=== PATIENT | female | born 2005 | race Caucasian/White ===

== ENCOUNTER 2024-10-08 23:20 | Emergency (ER) | payer OTHER, SELFPAY ==
[2024-10-08 23:29] VITALS: BP 121/85
[2024-10-08 23:56] LABS: % Basophils 0.8 % (0-2); % Eosinophils 2.8 % (0-6); % Immature Granulocytes 0.2 % (0-0.5); % Lymphocytes 36.9 % (20.5-51.1); % Monocytes 6.4 % (1.7-9.3); % Neutrophils 52.9 % (42.2-75.2); Absolute Basophils 0.1 10^3/uL (0-0.2); Absolute Eosinophils 0.3 10^3/uL (0-0.7); Absolute Lymphocytes 3.3 10^3/uL (1.2-3.4); Absolute Monocytes 0.6 10^3/uL (0.1-0.6); Absolute Neutrophils 4.7 10^3/uL (1.4-6.5); Hematocrit 38.6 % (37.0-47.0); Hemoglobin 12.9 g/dL (12.0-16.0); Mean Corp Hgb Conc. 33.4 g/dL (33.0-37.0); Mean Corpuscular Hgb 28.3 pg (27.0-31.0); Mean Corpuscular Volume 84.6 fL (81.0-99.0); Mean Platelet Volume 9.6 fL (7.4-10.4); Nucleated Red Blood Cells % 0 %; Platelet Count 360 10^3/uL (130-400); Red Blood Cell Count 4.56 10^6/uL (4.20-5.40); Red Cell Dist. Width 12.9 % (11.5-14.5)
[2024-10-09 00:15] LABS: ALT (SGPT) 38 U/L (0-35); AST (SGOT) 28 U/L (14-36); Albumin 4.2 g/dl (3.5-5.0); Alkaline Phosphatase 74 U/L (38-126); Blood Urea Nitrogen 5 mg/dl (7-17); Calcium 10.1 mg/dl (8.4-10.2); Carbon Dioxide 19 mmol/L (22-30); Chloride 107 mmol/L (98-107); Glucose 105 mg/dl (70-99); Potassium 3.9 mmol/L (3.5-5.1); Sodium 137 mmol/L (135-145); Total Bilirubin 0.6 mg/dl (0.2-1.3); Total Protein 7.2 g/dl (6.3-8.2); eGFR > 60.00
[2024-10-09 00:28] LABS: Troponin I < 0.012 ng/ml
[2024-10-09 02:49] VITALS: BP 116/69; BMI 35.8
[2024-10-09] MEDS: NSS 1000 IV (03:38)
[2024-10-09] MEDS: ZOFRAN 4 MG IV (03:43)
[2024-10-09 03:56] LABS: HCG, Serum Qualitative Screen Negative
[2024-10-09 04:19] LABS: D-Dimer < 0.27 ug/mlFEU (0.00-0.50)
--- NOTE | 2024-10-09 04:46 | ED.GENMED ---
History of Present Illness
General
Chief Complaint: Breathing Problem
Source: patient and family
Exam Limitations: none
Time Seen by Provider: 10/09/24 03:15
Nursing documentation reviewed up to this point in time: agreed with
History of Present Illness
History of Present Illness:
Pleasant 19-year-old female presents to the emergency department with nausea and vomiting. She states that she is home from school at [employer]. She states that for the last week she has been having nausea and vomiting and soft stools. She was seen in
the emergency department at [facility] and diagnosed with a panic attack. Patient came home and came here for evaluation. She is on Wegovy but does not feel that that is contributing to her symptoms. Patient last vomited approximately 20 hours prior to
arrival. She states that it was nonbilious and nonbloody. Denies abdominal pain. Denies fever or chills.
Review of Systems
Review of Systems
Allergies reviewed?: Yes
Other source history: family
All Other Systems: Not applicable
Constitutional: Reports no symptoms
EENT: Reports no symptoms
Respiratory: Reports no symptoms
Cardiac: Reports no symptoms
ABD/GI: Reports nausea and vomiting; Denies constipated, bloody stools or black stools
: Reports no symptoms
Musculoskeletal: Reports no symptoms
Skin: Reports no symptoms
Neurological: Reports no symptoms
Endocrine: Reports no symptoms
Hematologic/Lymphatic: Reports no symptoms
Psychiatric: Reports no symptoms
Phy Exam
General Physical Exam
General Presentation: well appearing and no apparent distress
General Skin: warm and dry
General Habitus: normal
General Mental: alert
General Hydration: appears well hydrated
ENT Exam
ENT Exam: EOMI, pharynx normal, neck supple and normocephalic
Eye Exam
Eye Exam: PERRL, cornea clear and conjunctiva normal
Cardiovascular Exam
Cardiovascular Exam: regular rate/rhythm, no edema, no murmur and normal peripheral pulses
Pulmonary Exam
Pulmonary Exam: lungs clear, no respiratory distress, no rales, no crackles, no rhonchi, no stridor, no wheezing and no cough
Gastrointestinal Exam
Gastrointestinal Exam: normal bowel sounds, non tender, soft, no organomegaly, no pulsatile mass and non distended
Neurological Exam
Neurological Exam: alert, oriented x3, no motor deficits and speech normal
Musculoskeletal Exam
Musculoskeletal Exam: full ROM and no edema
Skin Exam
Skin Exam: normal color, warm/dry, no rash, no petechia and other (Multiple piercings including a lip ring)
Psychiatric Exam
Psychiatric Exam: normal mood/affect
Course
Orders/Labs/Results
Orders:
Orders
10/08/24 23:36
EKG [Electrocardiogram (*1)] Urgent
Reason for Study: Chest Pain
EKG- Treatment ONCE
10/08/24 23:46
Complete Blood Count/With Diff Urgent
Comprehensive Metabolic Panel Urgent
Troponin I Urgent
10/09/24 03:25
0.9% Sodium Chloride 1000 ml [Nss] 1,000 ml IV BOLUS
Test Result ONCE
10/09/24 03:28
D-Dimer Urgent
HCG, Serum Qualitative Screen Urgent
10/09/24 03:41
Ondansetron Orally Disint [Zofran Odt (Orally Disintegrating)] 4 mg PO NOW STA
10/09/24 03:42
Ondansetron Injectable [Zofran] 4 mg .ROUTE .STK-MED ONE
10/09/24 03:43
Ondansetron Injectable [Zofran] 4 mg IV NOW STA
Abnormal Lab Results
10/08/24
23:46
Carbon Dioxide 19 L mmol/L
(22-30)
BUN 5 L mg/dl
(7-17)
Glucose 105 H mg/dl
(70-99)
ALT 38 H U/L
(0-35)
10/08/24 23:46
10/08/24 23:46
Vital Signs
Initial and Last Documented VS:
Initial Vital Signs
Temp Pulse Resp BP Pulse Ox
98.6 F 79 20 121/85 100
10/08/24 23:29 10/08/24 23:29 10/08/24 23:29 10/08/24 23:29 10/08/24 23:29
Last Documented Vital Signs
Temp Pulse Resp BP Pulse Ox
98.6 F 94 19 121/75 99
10/08/24 23:29 10/09/24 04:56 10/09/24 04:56 10/09/24 04:56 10/09/24 04:56
*Critical Care Note
Total Time (30-74mins, 75-104mins- exclusive of procedures): Not Applicable
ED Attending Note
-
Portions of this chart may have been created with voice recognition software.� Occasional wrong word or��sound alike� substitutions may have occurred due to the inherent limitations of voice recognition software.
Discharge Plan
Departure
Patient Disposition: Home (Routine Discharge)
Date of Disposition: 10/09/24
Time of Disposition: 04:47
Patient with high blood pressure during this ER visit?: No
Condition: Good
Discharge Problem:
Nausea & vomiting
Instructions: Nausea and vomiting in adults
Prescriptions:
New
ondansetron 4 mg tablet,disintegrating
4 mg PO Q8H 5 Days Qty: 15 0RF
Referrals:
[facility] [Outside]
[facility] [Outside]
Activity Restrictions/Additional Instructions:
Your prescriptions were sent electronically to the pharmacy that you specified.
It was a pleasure meeting you and taking part in your care. We hope for your continued healing and wellness.
Please read discharge instructions in their entirety. However, they are for general education and may not describe your exact diagnosis at discharge. Information on your ER visit and medical conditions were discussed with you along with appropriate
follow up information...
If indicated, please take your medications as instructed and indicated on discharge paperwork.
Please schedule a follow up appointment as directed. Call to schedule an appointment
Please return to the emergency department with ANY change in, persisting, or worsening of symptoms. If any of your symptoms do not improve, or persist, or become more severe within 6-12 hours, please return to the emergency department for further
care.
Please return to the emergency department if you develop a headache, neck pain/stiffness, fever greater than 100.4F, chest pain, shortness of breath, persistent nausea, vomiting, slurred speech, difficulty walking, numbness/tingling, weakness, signs
of infection or any other symptoms that are worrisome to you.
If you have any questions or concerns please do not hesitate to call the Hospital at or E-mail me directly at [email or web address]
Interventions
Interventions:
*Risk Screen - Suicide Last Done: 10/08/24 23:29
*General Assessment Last Done: 10/09/24 02:49
*Neglect/Abuse Screening Last Done: 10/09/24 02:49
*ED COVID-19 Vaccine History Last Done: 10/09/24 02:49
*Nursing Disposition Last Done: 10/09/24 04:56
ED- Cardiac Assessment Last Done: 10/09/24 02:49
ED- Pulmonary Assessment Last Done: 10/09/24 02:49
Discharge Date and Time
Discharge Date/Time: 10/09/24 05:04
Print Language: SENEGALESE
[2024-10-09 04:56] VITALS: BP 121/75
== END 2024-10-09 05:04 | disposition home or self-care (01) ==
LOC: EMR 23:20
PROVIDERS: EMERGENCY PHYSICIAN Student in an Organized Health Care Education/Training Program
DX: R11.2 Nausea with vomiting, unspecified (principal); Z79.899 Other long term (current) drug therapy
CPT/HCPCS: 96374; 96361; 99284; 80053; 84484; 84703; 85025; 85379; 93005

== ENCOUNTER 2024-10-09 21:30 | Emergency (ER) | payer OTHER, SELFPAY ==
[2024-10-09 21:34] VITALS: BP 141/92
[2024-10-09 22:01] LABS: % Basophils 0.8 % (0-2); % Immature Granulocytes 0.1 % (0-0.5); % Lymphocytes 31.6 % (20.5-51.1); % Monocytes 7.2 % (1.7-9.3); % Neutrophils 52.3 % (42.2-75.2); Absolute Basophils 0.1 10^3/uL (0-0.2); Absolute Eosinophils 0.6 10^3/uL (0-0.7); Absolute Lymphocytes 2.3 10^3/uL (1.2-3.4); Absolute Monocytes 0.5 10^3/uL (0.1-0.6); Absolute Neutrophils 3.7 10^3/uL (1.4-6.5); Hematocrit 39.6 % (37.0-47.0); Hemoglobin 13.2 g/dL (12.0-16.0); Mean Corp Hgb Conc. 33.3 g/dL (33.0-37.0); Mean Corpuscular Hgb 27.9 pg (27.0-31.0); Mean Corpuscular Volume 83.7 fL (81.0-99.0); Mean Platelet Volume 9.5 fL (7.4-10.4); Nucleated Red Blood Cells % 0 %; Platelet Count 336 10^3/uL (130-400); Red Blood Cell Count 4.73 10^6/uL (4.20-5.40); White Blood Cell Count 7.1 10^3/uL (4.8-10.8)
[2024-10-09 22:15] LABS: ALT (SGPT) 47 U/L (0-35); AST (SGOT) 30 U/L (14-36); Albumin 4.3 g/dl (3.5-5.0); Alkaline Phosphatase 75 U/L (38-126); Blood Urea Nitrogen 4 mg/dl (7-17); Calcium 9.8 mg/dl (8.4-10.2); Carbon Dioxide 18 mmol/L (22-30); Chloride 109 mmol/L (98-107); Glucose 99 mg/dl (70-99); Lipase 84 U/L (23-300); Sodium 140 mmol/L (135-145); Total Bilirubin 0.6 mg/dl (0.2-1.3); Total Protein 7.3 g/dl (6.3-8.2); eGFR > 60.00
[2024-10-10 00:38] VITALS: BP 130/75
[2024-10-10 00:41] VITALS: BMI 34.7
[2024-10-10 01:00] VITALS: BP 120/64
[2024-10-10 01:18] LABS: Urine Albumin Negative (Neg - Trace); Urine Bilirubin Negative (Negative); Urine Character Clear (Clear); Urine Color Yellow; Urine Glucose Negative (Negative); Urine Ketone 3+ (Negative); Urine Leukocyte Negative (Negative); Urine Nitrite Negative (Negative); Urine Occult Blood 2+ (Negative); Urine Specific Gravity 1.015 (<1.030); Urine Urobilinogen Negative (Neg - 1+)
--- NOTE | 2024-10-10 01:54 | ED.GENMED ---
History of Present Illness
General
Chief Complaint: Abdominal Pain
Source: patient, family (Mother who is at bedside) and previous hospital records (ED visit from yesterday for similar complaint.)
Exam Limitations: none
Time Seen by Provider: 10/10/24 01:19
Nursing documentation reviewed up to this point in time: agreed with
History of Present Illness
History of Present Illness:
This is a 19-year-old overweight female who has history of anxiety, insomnia, obesity and was started on Wegovy early August. Recently completed a 4-week course of 0.5 mg weekly.
1 week ago she developed nausea, vomiting, generalized upper abdominal pain, chest pain, intermittent chills without associated fever. She denies diarrhea nor constipation, states she has been passing soft to firm stools. At 1 point she wiped and
noted scant blood on the toilet tissue but denies blood streaked about the stools nor blood in the toilet. Evaluated in [facility] where she is a student at [employer]. She states workup was unremarkable, was diagnosed with panic
attack and discharged to home. Symptoms have persisted throughout the week and she presented yesterday to this ED with similar complaints. Received IV fluids, and IV dose of Zofran. Lincoln improved. EKG, laboratory studies were unremarkable
including negative D-dimer, normal troponin. Discharged home with prescription for Zofran.
She returns with similar symptoms and admits that upper abdominal pain is worse with meals, somewhat worse with lying supine radiates to her chest and accompanied with intermittent shivering, intermittent shortness of breath but no cough, no fever.
She has had no further nausea nor vomiting.
Last menstrual period 3 weeks ago, normal and on time.
She states she did skip her most recent dose of Wegovy which was due on October 08.
Past History
Past History
ED Past Medical History: Psychiatric and Other (Overweight)
ED Past Surgical History: None
Social History
Tobacco: Non-smoker
Alcohol: None
Drug: None
Personal: Single
Living: with family
Employment: Student
Family History
Family History: Other (Noncontributory)
Phy Exam
Physical Exam
Physical Exam:
GENERAL: 19-year-old female appears her stated age, awake and alert, pleasant, appears in no acute distress. Mother is accompanying.
EYE: anicteric
NECK: Supple, nontender, no meningismus, no significant adenopathy.
ENT: oral mucosa is moist. No rhinorrhea.
CARDIAC: Regular rate and rhythm. no murmur.
LUNGS: Clear breath sounds bilaterally, no acute respiratory distress, no wheezes/rales/rhonchi
ABDOMEN: Soft, nondistended, mild tenderness epigastric region with deep palpation only, no r/g, no cvat. No palpable masses. Normoactive BS.
NEUROLOGICAL: Alert and oriented x3, no focal neuro deficits. Gait is fernandez and steady.
SKIN: Warm and dry, normal color, skin intact. No rash.
MUSCULOSKELETAL: No C/C/E. peripheral pulses are full and equal b/l. No palpable tenderness.
PSYCH: Normal and appropriate interaction.
Course
Orders/Labs/Results
Orders:
Orders
10/09/24 21:47
Complete Blood Count/With Diff Urgent
Comprehensive Metabolic Panel Urgent
Lipase Urgent
TSH Reflex To Free T4 Urgent
Comment: ADD ON
10/10/24 00:55
Urinalysis Reflex To Culture Urgent
Date Specimen was Collected: 10/10/24
Time Specimen was Collected: 00:40
Urine Microscopic Reflex Cult Urgent
10/10/24 01:24
Add On- LAB Urgent
Tests Added?: TSH w reflex to free T-4
10/10/24 01:52
US Abdomen Complete/Upper Urgent
Comment:
Reason For Exam: 1 week upper abd pain, N/V
10/10/24 02:01
Pantoprazole [Protonix IV] 40 mg IV NOW STA
10/10/24 02:43
D-Dimer Urgent
Abnormal Lab Results
10/09/24 10/10/24
21:47 00:55
Eosinophils % 8.0 H %
(0-6)
Chloride 109 H mmol/L
(98-107)
Carbon Dioxide 18 L mmol/L
(22-30)
BUN 4 L mg/dl
(7-17)
ALT 47 H U/L
(0-35)
Urine Ketones 3+ A
(Negative)
Ur Occult Blood Reflex 2+ A
(Negative)
Urine RBC 7-10 A /HPF
(0-2)
Urine Bacteria (Reflex) Few A
(Negative)
10/09/24 21:47
10/09/24 21:47
Vital Signs
Initial and Last Documented VS:
Initial Vital Signs
Temp Pulse Resp BP Pulse Ox
98 F 98 18 141/92 98
10/09/24 21:34 10/09/24 21:34 10/09/24 21:34 10/09/24 21:34 10/09/24 21:34
Last Documented Vital Signs
Temp Pulse Resp BP Pulse Ox
98 F 86 15 125/67 98
10/09/24 21:34 10/10/24 03:15 10/10/24 03:15 10/10/24 03:00 10/09/24 21:34
MDM/Problems Addressed
Differential Diagnosis Includes:
Concern for GERD, gastritis, biliary colic, thyroid disorder, constipation. Concern for adverse reaction to GLP-1 agonist.
Symptoms have been ongoing for a week. Unremarkable EKG yesterday as well as negative troponin. ACS, cardiac abnormality are unlikely.
Symptoms are worse with eating, worse at nighttime more suspicious for GERD versus biliary colic.
Symptoms are not all that consistent with PE however patient does have risk factors for thromboembolism; maintained on control pills and smokes.
Will check abdominal ultrasound.
Will check TSH.
Will check D-dimer.
Will give an IV dose of Protonix for potential gastritis/GERD.
Chronic conditions affecting care: Psychiatric illness
*Radiology
Radiology exam reviewed: radiology read reviewed (Abdominal ultrasound is unremarkable)
*Pulse Oximetry
Patient hypoxic: no
*Cold Press Operator Interpretation
Rate: normal
Interpretation: normal
Rhythm: sinus
*Critical Care Note
Total Time (30-74mins, 75-104mins- exclusive of procedures): Not Applicable
Update Note
Update Note:
03:40
Patient continues to appear comfortable. Resting comfortably. She has had no nausea or vomiting. Remains afebrile.
Abdomen is soft without appreciable tenderness.
Abdominal ultrasound is unremarkable.
TSH is normal.
D-dimer within normal limits as well.
Will initiate a short course of Protonix for potential gastritis, GERD and recommend she continue to hold her Wegovy at least for now, for at least another week as this could certainly be aggravating/causing the symptoms.
Recommend bland diet.
Prompt follow-up with PCP for recheck.
ED Attending Note
-
Portions of this chart may have been created with voice recognition software.� Occasional wrong word or��sound alike� substitutions may have occurred due to the inherent limitations of voice recognition software.
Discharge Plan
Departure
Patient Disposition: Home (Routine Discharge)
Date of Disposition: 10/10/24
Time of Disposition: 03:39
Patient with high blood pressure during this ER visit?: No
Condition: Good
Discharge Problem:
acute gastritis with GERD
Instructions: Acid Reflux and GERD in Adults (DC), Gastritis (DC)
Prescriptions:
New
pantoprazole [Protonix] 40 mg tablet,delayed release (DR/EC)
40 mg PO DAILY Qty: 30 0RF
No Action
ondansetron 4 mg tablet,disintegrating
4 mg PO Q8H 5 Days Qty: 15 0RF
Referrals:
Paulette Flynn MD [Family Provider] - Call in 1-3 days for appt
Interventions
Interventions:
*Risk Screen - Suicide Last Done: 10/09/24 21:34
*General Assessment Last Done: 10/09/24 21:34
*Neglect/Abuse Screening Last Done: 10/09/24 21:34
ED- Fall Risk Assessment Last Done: 10/10/24 00:42
*Nursing Disposition Last Done: 10/10/24 03:48
HX-Qisluo-Qmtzyveabg Assessment Last Done: 10/10/24 00:42
Discharge Date and Time
Discharge Date/Time: 10/10/24 03:48
Print Language: IRISH
[2024-10-10 02:00] VITALS: BP 128/68
[2024-10-10 02:10] LABS: Urine Mucus Few; Urine Squamous Cell 21-25 /LPF (Few)
[2024-10-10 02:11] LABS: Urine Bacteria Few (Negative); Urine White Cell 0-2 /HPF (0-5)
[2024-10-10] MEDS: PROTONIX IV 40 MG IV (02:34)
[2024-10-10 02:39] LABS: TSH Reflex To Free T4 2.36 uIU/ml (0.47-4.68)
[2024-10-10 03:00] VITALS: BP 125/67
[2024-10-10 03:09] LABS: D-Dimer 0.28 ug/mlFEU (0.00-0.50)
== END 2024-10-10 03:48 | disposition home or self-care (01) ==
LOC: EMR 21:30
PROVIDERS: Emergency Medicine; EMERGENCY PHYSICIAN Emergency Medicine; FAMILY PHYSICIAN Internal Medicine
DX: K29.00 Acute gastritis without bleeding (principal); K21.9 Gastro-esophageal reflux disease without esophagitis
CPT/HCPCS: 99284; 96374; 76700; 80053; 81003; 81015; 83690; 84443; 85025; 85379

== ENCOUNTER → 2024-10-14 09:25 | Outpatient (REF) | payer OTHER, SELFPAY | LOC: RCS 09:25 | PROVIDERS: ATTENDING PHYSICIAN Nurse Practitioner Family | DX: R00.2 Palpitations (principal) | CPT/HCPCS: 93225; 93226 ==